=== PATIENT | female | born 1950 | race African-American/Black ===

== ENCOUNTER 2016-07-24 10:23 | Inpatient (IN) | payer OTHER ==
[2016-07-22 11:24] LABS: BASOPHIL % 1.7 % (0-2); PLATELET COUNT 370 x10^3mcL (130-400)
[2016-07-22 11:25] LABS: RED CELL DISTRIBUTION WIDTH 15.1 % (11.5-14.5)
[2016-07-22 11:57] LABS: ALBUMIN 3.7 g/dL (3.4-5.0); ALKALINE PHOSPHATASE 130 U/L (46-116); ALT/SGPT 25 U/L (14-59); AST/SGOT 23 U/L (15-37); CALCIUM 8.9 mg/dL (8.5-10.1); CARBON DIOXIDE 28.5 mmol/L (21-32); CHLORIDE SERUM 103 mmol/L (98-107); CHOLESTEROL 195 mg/dL (<200); CREATININE SERUM 0.9 mg/dL (0.6-1.0); GFR1 > 60 mL/min; GLUCOSE SERUM 109 mg/dL (74-106); LACTIC DEHYDROGENASE (LDH) 226 U/L (100-190); PHOSPHOROUS 3.5 mg/dL (2.5-4.9); POTASSIUM SERUM 3.8 mmol/L (3.5-5.1); SODIUM SERUM 139 mmol/L (136-145); TOTAL PROTEIN, SERUM 7.8 g/dL (6.4-8.2)
[~2016-07-24] VITALS: Ht 157.5 cm; Wt 99.5 kg
[~2016-07-24 10:23] MED LIST: CEL20 PO; COL250 PO; COZ50 PO; HYD25 PO; NOR10T PO
[2016-07-24 10:47] VITALS: BP 114/66
[2016-07-24 14:06] VITALS: BP 139/75
[2016-07-24 14:27] LABS: BASOPHIL % 0.2 % (0-2); PLATELET COUNT 362 x10^3mcL (130-400)
[2016-07-24 14:44] LABS: ALBUMIN 3.6 g/dL (3.4-5.0); BILIRUBIN TOTAL 0.31 mg/dL (0.20-1.00); CALCIUM 8.6 mg/dL (8.5-10.1); CARBON DIOXIDE 27.1 mmol/L (21-32); MAGNESIUM 1.9 mg/dL (1.8-2.4); PHOSPHOROUS 4.1 mg/dL (2.5-4.9); POTASSIUM SERUM 3.9 mmol/L (3.5-5.1); TOTAL PROTEIN, SERUM 7.6 g/dL (6.4-8.2)
[2016-07-24 14:51] LABS: T3 TOTAL 1.15 ng/mL
[2016-07-24 14:52] LABS: CHOLESTEROL/HDL RATIO 2.3
[2016-07-24 14:57] LABS: FREE T4 1.23 ng/dL (0.76-1.46); FREE THYROXINE INDEX 3.1 ug/dL (1.4-4.5); T4(THYROXINE) 9.1 ug/dL (4.7-13.3)
[2016-07-24 18:00] VITALS: BP 139/75
[2016-07-24 20:57] VITALS: BP 110/61
[2016-07-24 23:41] LABS: microscopic required? NO
[2016-07-25 00:02] LABS: UA SPECIFIC GRAVITY 1.015 (1.005-1.035); urine erythrocyte NEGATIVE (NEGATIVE)
[2016-07-25 05:27] VITALS: BP 119/60
[2016-07-25 05:47] LABS: BASOPHIL % 0.9 % (0-2); PLATELET COUNT 371 x10^3mcL (130-400)
[2016-07-25 06:17] LABS: CALCIUM 8.8 mg/dL (8.5-10.1); CARBON DIOXIDE 23.3 mmol/L (21-32); CHLORIDE SERUM 99 mmol/L (98-107); CREATININE SERUM 0.9 mg/dL (0.6-1.0); GFR1 > 60 mL/min; GLUCOSE SERUM 109 mg/dL (74-106); POTASSIUM SERUM 4.2 mmol/L (3.5-5.1); SODIUM SERUM 136 mmol/L (136-145)
[2016-07-25 06:42] LABS: RED CELL DISTRIBUTION WIDTH 14.9 % (11.5-14.5)
[2016-07-25 08:40] VITALS: BP 117/60
[2016-07-25 13:46] VITALS: BP 123/66
[2016-07-25 17:01] VITALS: BP 123/66
[2016-07-25] MEDS ORDERED: 1ST CHOICE LAN1 EACH MC (17:05)
[2016-07-25] MEDS ORDERED: GLUCOSE TEST S1 EACH MC ×2 (17:05→17:11)
[2016-07-25 17:10] VITALS: BP 94/46
== END 2016-07-25 18:37 | disposition home or self-care (01) | DRG 354 ==
LOC: DS 10:23 → DU 10:23 → DS 11:00 → OR 13:30 → DS 13:30 → DU 13:58 → MU 17:45 → DS 07-25 02:12 → MU 07-25 02:25 → DU 07-25 02:25 → MU 07-25 09:10
PROVIDERS: Surgery; ADMIT Family Medicine
PROC: 0WUF0JZ Supplement Abdominal Wall with Synthetic Substitute, Open Approach (ICD-10-PCS; principal; 2016-07-25)
DX: K43.2 Incisional hernia without obstruction or gangrene (principal); Z68.41 Body mass index [BMI] 40.0-44.9, adult; E11.65 Type 2 diabetes mellitus with hyperglycemia; E78.5 Hyperlipidemia, unspecified; F32.9 Major depressive disorder, single episode, unspecified; J44.9 Chronic obstructive pulmonary disease, unspecified; E66.9 Obesity, unspecified; Z90.13 Acquired absence of bilateral breasts and nipples; I10 Essential (primary) hypertension; Z90.49 Acquired absence of other specified parts of digestive tract; Z98.51 Tubal ligation status; Z80.3 Family history of malignant neoplasm of breast
CPT/HCPCS: 80307; 82962; 83880; 84439; 94150; C1781; J0690; J1170; J2405; J3490; J7030; J7620; Q0092

== ENCOUNTER 2018-12-03 07:12 | Day surgery (SDC) | payer OTHER ==
[~2018-12-03] VITALS: Ht 157.5 cm; Wt 100.7 kg
[~2018-12-03 07:12] MED LIST changes: +1ST CHOICE LAN1 EACH MC; +GLUCOSE TEST S1 EACH MC
[2018-12-03 08:18] VITALS: BP 130/68
[2018-12-03 11:19] VITALS: BP 105/51
== END 2018-12-03 11:40 | disposition home or self-care (01) ==
LOC: GI 07:12 → OR 09:00 → GI 11:40
DX: Z12.11 Encounter for screening for malignant neoplasm of colon (principal); D12.5 Benign neoplasm of sigmoid colon; K57.30 Diverticulosis of large intestine without perforation or abscess without bleeding; E66.8 Other obesity; Z85.3 Personal history of malignant neoplasm of breast; Z90.49 Acquired absence of other specified parts of digestive tract; Z98.890 Other specified postprocedural states; Z87.891 Personal history of nicotine dependence; Z90.13 Acquired absence of bilateral breasts and nipples; Z79.899 Other long term (current) drug therapy; Z68.41 Body mass index [BMI] 40.0-44.9, adult; Z80.0 Family history of malignant neoplasm of digestive organs
CPT/HCPCS: 45378; J1200; J1610; J2175; J2250; J2310; J3010; J3490